=== PATIENT | female | born 1985 | race Caucasian/White ===

== ENCOUNTER 2017-03-04 00:18 | Emergency (ER) | payer SELFPAY ==
[~2017-03-04] VITALS: Ht 157.5 cm; Wt 53.0 kg
[2017-03-04 00:19] VITALS: BP 120/71; PULSE 87; RESP 18; TEMP 98.5; O2SAT 96
[2017-03-04 01:28] VITALS: BP 140/76; PULSE 80; RESP 18; O2SAT 99
--- NOTE | 2017-03-04 02:09 | PD ---
HPI Chief Complaint: Abdominal Pain Time Seen by Provider: 01:50 Travel History International Travel<30 days: No Contact w/Intl Traveler<30days: No Traveled to known affect area: No History of Present Illness HPI The patient was seen and examined in the presence of the nurse. This patient complains of pelvic pain. She reports history of endometriosis and says that every month on her menstrual period time she gets several days of pelvic cramping. This feels the same as her usual pelvic cramping during period. She is on her menstrual period now. She usually goes to an emergency room frequently for this [place] the [place] of [facility] but says she is now moving to the side of the [facility]. Denies any fever or vomiting or diarrhea. Symptoms severity is severe. No alleviating factors. She says she usually gets a prescription for Bentyl which helps her cramps. She does not want any narcotics. Duration 2 days PFSH Past Medical History Medical other: Yes (endometriosis ) ?: Not LMP: CURRENT Past Surgical History Surgical History: No Previous Surgery Social History Alcohol Use: Yes Tobacco Use: Yes (pack a day ) Substance Use: No Allergies-Medications (Allergen,Severity, Reaction): Coded Allergies: Amoxil (Verified Allergy, Severe, Hives, 03/04/17) Penicillin (Verified Allergy, Severe, Hives, 03/04/17) Reported Meds & Prescriptions Reported Meds & Active Scripts Active No Active Prescriptions or Reported Medications Review of Systems General / Constitutional: No: Fever Eyes: No: Visual changes HENT: No: Headaches Cardiovascular: No: Chest Pain or Discomfort Respiratory: No: Shortness of Breath Gastrointestinal: Positive: Abdominal Pain Genitourinary: Positive: Pelvic Pain, No: Dysuria Musculoskeletal: No: Pain Skin: No Rash Neurologic: No: Weakness Psychiatric: No: Depression Endocrine: No: Polydipsia Hematologic/Lymphatic: No: Easy Bruising Physical Exam Narrative GENERAL: Well-nourished, well-developed patient with pelvic cramping. SKIN: Focused skin assessment reveals no rash and nodules. Skin is Warm and dry. HEAD: Atraumatic. Normocephalic. EYES: Pupils equal and round. No scleral icterus. No injection or drainage. ENT: No nasal bleeding or discharge. Mucous membranes pink and moist. NECK: Trachea midline. No JVD. CARDIOVASCULAR: Regular rate and rhythm. No murmur appreciated. RESPIRATORY: No accessory muscle use. Clear to auscultation. Breath sounds equal bilaterally. GASTROINTESTINAL: Abdomen soft, non-tender, nondistended. Hepatic and splenic margins not palpable. MUSCULOSKELETAL: No obvious deformities. No clubbing. No cyanosis. No edema. NEUROLOGICAL: Awake and alert. No obvious cranial nerve deficits. Motor grossly within normal limits. Normal speech. PSYCHIATRIC: Appropriate mood and affect; insight and judgment normal. Pelvic: Scant blood in the vault. No discharge. No adnexal mass appreciated Data Data Last Documented VS Vital Signs Date Time Temp Pulse Resp B/P Pulse Ox O2 Delivery O2 Flow Rate FiO2 03/04/17 01:28 80 18 140/76 99 Room Air 03/04/17 00:19 98.5 Orders Urinalysis - C+S If Indicated (03/04/17 00:54) Ed Urine Pregnancytest Poc (03/04/17 00:54) Ketorolac Inj (Toradol Inj) (03/04/17 02:15) Urine Culture (03/04/17 01:40) Basic Metabolic Panel (Bmp) (03/04/17 02:40) Complete Blood Count With Diff (03/04/17 02:40) Ct Abd/Pel W Iv Contrast(Rout) (03/04/17 02:40) Sodium Chloride 0.9% Flush (Ns Flush) (03/04/17 02:45) Labs Laboratory Tests Test 03/04/17 01:40 Urine Color LIGHT-ORANGE Urine Turbidity CLOUDY Urine pH 6.0 Urine Specific [place] 1.034 Urine Protein 100 mg/dL Urine Glucose (UA) NEG mg/dL Urine Ketones TRACE mg/dL Urine Occult Blood MOD Urine Nitrite NEG Urine Bilirubin NEG Urine Urobilinogen 2.0 MG/DL Urine Leukocyte Esterase NEG Urine RBC 2 /hpf Urine Squamous Epithelial 2 /hpf Cells Urine Bacteria MANY /hpf Urine Mucus MANY /lpf Microscopic Urinalysis Comment CULTURE INDICATED MDM Medical Decision Making Medical Screen Exam Complete: Yes Emergency Medical Condition: Yes Medical Record Reviewed: Yes Differential Diagnosis Differential diagnosis includes PID, ectopic , ovarian cyst, ovarian torsion, endometriosis. Narrative Course I have reviewed the patient's electronic medical record. Patient has never been here before Urine is negative I gave her Toradol injection Pelvic exam is nonspecific Patient seems improved. She is up and ambulating in the department. She came with her brother who is also a patient and she is now wandered over to his room and conversing. Her pain seems much improved. She says this is a flare of her usual pain and no different than prior episodes. She says she had CT scanning 2 months ago for the same thing and showed only ovarian cystic disease. Based on her history I don't think extensive workup here would be revealing. There is no sign of PID and she is not . She has soft benign abdomen and a flare of a chronic problem. I prescribed her some Bentyl at her request She should follow-up with primary care Diagnosis Primary Impression: Chronic pelvic pain in female Additional Instructions: The patient was advised to follow up with their physician and return if they worsen. Med/Other Pt SpecificInfo: Prescription(s) given Scripts Dicyclomine (Bentyl)20 Mg Tab20 Mg PO TID PRN (Bowel Management) #20 TAB Ref 0 Prov:Lino Guzman MD 03/04/17 Disposition: 01 DISCHARGE HOME Condition: Stable Lino Guzman MD Mar 04, 2017 02:09
[2017-03-04] MEDS ORDERED: KETOROLAC TROMETHAMINE 60 MG/2 ML (IM) VIAL IM ONE (02:15)
[2017-03-04 02:17] LABS: BACTERIA, URINE MANY /hpf; BLOOD, URINE MOD (NEG); COMMENT (UR) CULTURE INDICATED; CULTURE IF INDICATED CULTURE INDICATED; GLUCOSE,URINE NEG (NEG); KETONE, URINE TRACE mg/dL (NEG); MUCUS URINE MANY /lpf (OCC); NITRITE,URINE NEG (NEG); SQUAMOUS EPITHELIAL CELL URINE 2 /hpf (0-5)
[2017-03-04 02:19] LABS: URINE COLOR LIGHT-ORANGE (YELLW/STRAW)
[2017-03-04] MEDS ORDERED: SODIUM CHLORIDE 0.9% FLUSH 10 ML FLUSH IV FLUSH PRN (02:45)
[2017-03-04] MEDS ORDERED: BENT20TA PO (02:57)
[2017-03-04 05:43] VITALS: BP 134/68
== END 2017-03-04 05:46 | disposition home or self-care (01) ==
LOC: NEPE 00:18
DX: R10.2 Pelvic and perineal pain (principal); G89.29 Other chronic pain
CPT/HCPCS: 81001; 84703; 87086; 96372; 99284; J1885